=== PATIENT | male | born 1995 | race Caucasian/White ===

== ENCOUNTER 2017-03-09 02:36 | Emergency (ER) | payer OTHER ==
[2017-03-09] MEDS ORDERED: TYLE325C PO (02:47)
[2017-03-09] MEDS ORDERED: NORCOTAB PO (06:34)
[2017-03-09 06:45] VITALS: BP 134/82
[2017-03-09] MEDS ORDERED: NORCO, ANEXSIA 5/325MG TABLET (HYDROcodone/ACETAMINOPHEN) PO ONE (06:45)
== END 2017-03-09 06:48 | disposition home or self-care (01) ==
LOC: M ED 02:36
DX: R68.84 Jaw pain (principal); K08.89 Other specified disorders of teeth and supporting structures; F17.210 Nicotine dependence, cigarettes, uncomplicated

== ENCOUNTER 2023-01-01 15:29 | Emergency (ER) | payer OTHER, SELFPAY ==
[~2023-01-01] VITALS: Ht 172.7 cm; Wt 63.6 kg
[~2023-01-01 15:29] MED LIST: HYDR-3715 PO; TYLE325C PO
[2023-01-01] MEDS ORDERED: METOCLOPRAMIDE INJ 10MG/2ML VIAL IV ONE (17:40)
[2023-01-01] MEDS ORDERED: KETOROLAC 30 MG/ML 1ML VIAL IV ONE (17:40)
[2023-01-01] MEDS ORDERED: NS 1,000 ML IV ONE (17:40)
[2023-01-01 18:33] LABS: BASO % 0.4 % (0.0-1.0); EOS # 0.2 10^3/uL (0.0-0.5); EOS % 2.2 % (0.0-3.0); HEMATOCRIT 40.2 % (42.0-52.0); HEMOGLOBIN 13.6 g/dl (13.5-17.5); LYMPH # 1.5 10^3/uL (1.5-5.0); LYMPH % 21.1 % (24.0-44.0); MEAN CORPUSCULAR HEMOGLOBIN 31.3 pg (27.0-33.0); MEAN CORPUSCULAR HGB CONC 33.8 g/dl (32.0-36.5); MEAN CORPUSCULAR VOLUME 92.6 fl (80.0-96.0); MONO # 0.5 10^3/uL (0.0-0.8); MONO % 6.6 % (2.0-8.0); NEUTROPHILS # 4.8 10^3/uL (1.5-8.5); NEUTROPHILS % 69.4 % (36.0-66.0); PLATELET COUNT, AUTOMATED 239 10^3/uL (150-450); RED BLOOD COUNT 4.34 10^6/uL (4.30-6.10)
[2023-01-01 19:08] LABS: ERYTHROCYTE SEDIMENTATION RATE 4 mm/hr (0-15)
[2023-01-01 19:28] VITALS: BP 130/76
[2023-01-01] MEDS ORDERED: OMEP40CA4 PO (20:08)
== END 2023-01-01 20:02 | disposition home or self-care (01) ==
LOC: M ED 15:29
DX: R51.9 Headache, unspecified (principal); Z79.899 Other long term (current) drug therapy
CPT/HCPCS: 70450; 80047; 85025; 85652; 86140; 86618; 96374; 96375; 99284; J1100; J1885; J2765